=== PATIENT | female | born 1955 | race Hispanic/Latino ===

== ENCOUNTER 2019-01-31 18:35 | Emergency (ER) | payer SELFPAY ==
[2019-01-31 19:09] LABS: APPEARANCE,URINE Cloudy (CLEAR); BILIRUBIN,URINE Negative (NEGATIVE); COLOR,URINE Yellow (YELLOW); GLUCOSE, URINE (UA) Negative (NEGATIVE); KETONES,URINE Negative (NEGATIVE); LEUKOCYTE ESTERASE ,URINE Large (NEGATIVE); NITRATE,URINE Negative (NEGATIVE); OCCULT BLOOD,URINE Small (NEGATIVE); PH,URINE 6.5 (5.0-8.0); PROTEIN,URINE Negative (NEGATIVE); UROBILINOGEN,URINE 0.2 mg/dL (0.2-1.0)
[2019-01-31 19:24] LABS: BASOPHILS % (AUTO) 0.2 % (0.0-5.0); EOSINOPHILS % (AUTO) 1.4 % (0.0-8.0); HEMATOCRIT 40.2 % (36-48); LYMPHOCYTES % (AUTO) 26.3 % (21.0-51.0); MEAN CORPUSCULAR HEMOGLOBIN 33.3 pg (27.0-33.0); MEAN CORPUSCULAR HGB CONC 34.7 g/dL (32.0-36.0); MEAN CORPUSCULAR VOLUME 96.2 fL (79-99); MONOCYTES % (AUTO) 6.4 % (3.0-13.0); NEUTROPHILS % (AUTO) 65.7 % (40.0-77.0); NUCLEATED RED BLOOD CELLS 0.1 % (0.0-0.19); PLATELET COUNT (AUTO) 189 K/uL (130-400); RED BLOOD CELL COUNT(AUTO) 4.18 MIL/uL (4.00-5.50); RED CELL DISTRIBUTION WIDTH 13.1 % (11.0-15.5); WHITE BLOOD COUNT (AUTO) 11.5 K/uL (4.8-10.8)
[2019-01-31 19:27] LABS: BACTERIA,URINE Moderate /HPF (None Seen)
[2019-01-31 19:28] LABS: MUCUS,URINE None Seen LPF (None Seen); SQUAMOUS EPITHELIAL CELL,UR 0-2 /HPF (0-2)
[2019-01-31 19:35] LABS: CREATININE 0.9 mg/dL (0.5-1.5); POTASSIUM 3.7 mmol/L (3.5-5.1)
[2019-01-31 19:39] LABS: ALBUMIN 3.7 g/dL (3.5-5.0); BILIRUBIN,TOTAL 0.4 mg/dL (0.2-1.0); TOTAL PROTEIN, SERUM 7.9 g/dL (6.0-8.3)
[2019-01-31] MEDS ORDERED: KETOROLAC TROMETHAMINE 30MG/ML ONE (19:58)
[2019-01-31] MEDS ORDERED: HYDROMORPHONE 1 MG/1 ML AMP ONE (19:58)
[2019-01-31] MEDS ORDERED: SODIUM CHLORIDE 0.9% 1000ML 1,000 ML IV ONE (19:59)
[2019-01-31] MEDS ORDERED: CEFTRIAXONE SODIUM 1 GM ONE (21:08)
== END 2019-01-31 22:05 | disposition home or self-care (01) ==
LOC: EDH 18:35
DX: N20.1 Calculus of ureter (principal); N39.0 Urinary tract infection, site not specified; Z88.6 Allergy status to analgesic agent; Z90.710 Acquired absence of both cervix and uterus; Z90.49 Acquired absence of other specified parts of digestive tract; Z93.6 Other artificial openings of urinary tract status
CPT/HCPCS: 36415; 74176; 80053; 81001; 83690; 85025; 87077; 87088; 87186; 96374; 96375; 99285; J0696; J1170; J1885; J7030

== ENCOUNTER 2019-02-03 08:28 | Emergency (ER) | payer SELFPAY | END 2019-02-03 13:04 | disposition home or self-care (01) | LOC: EDH 08:28 | DX: T83.092A Other mechanical complication of nephrostomy catheter, initial encounter (principal); Z90.49 Acquired absence of other specified parts of digestive tract; Z90.710 Acquired absence of both cervix and uterus; Z87.442 Personal history of urinary calculi; Z88.5 Allergy status to narcotic agent; Z88.2 Allergy status to sulfonamides | CPT/HCPCS: 74176 ==

== ENCOUNTER 2019-07-21 10:14 | Day surgery (SDC) | payer BC, MEDICARE ==
[2019-07-17 15:37] LABS: BASOPHILS % (AUTO) 0.7 % (0.0-5.0); EOSINOPHILS % (AUTO) 2.9 % (0.0-8.0); HEMATOCRIT 39.9 % (36-48); LYMPHOCYTES % (AUTO) 37.3 % (21.0-51.0); MEAN CORPUSCULAR HEMOGLOBIN 31.2 pg (27.0-33.0); MEAN CORPUSCULAR HGB CONC 33.6 g/dL (32.0-36.0); MEAN CORPUSCULAR VOLUME 92.8 fL (79-99); MONOCYTES % (AUTO) 5.4 % (3.0-13.0); NEUTROPHILS % (AUTO) 53.6 % (40.0-77.0); PLATELET COUNT (AUTO) 246 K/uL (130-400); RED CELL DISTRIBUTION WIDTH 12.8 % (11.0-15.5); WHITE BLOOD COUNT (AUTO) 7.6 K/uL (4.8-10.8)
[2019-07-17 15:47] LABS: CREATININE 0.9 mg/dL (0.5-1.5); POTASSIUM 3.4 mmol/L (3.5-5.1)
[2019-07-17 16:29] VITALS: BP 116/57
--- NOTE | 2019-07-18 12:54 | NUR ---
EKG ABNORMAL EKG REPORTED TO DR. JULES NO FURTHER ORDERS GIVEN, OK TO PROCEED WITH PLANNED SURGERY
[~2019-07-21] VITALS: Ht 149.9 cm; Wt 69.6 kg
[2019-07-21] VITALS (14 sets, daily range): BP systolic 114–137; BP diastolic 52–95
[~2019-07-21 10:14] MED LIST: TAMS-1 PO
[2019-07-21] MEDS ORDERED: LACTATED RINGERS 1000ML 1,000 ML IV ONE (11:48)
[2019-07-21] MEDS ORDERED: ZOSYN 3.375GM+NS 50ML 50 ML IV ONE (11:48)
[2019-07-21] MEDS ORDERED: OXYB-66 PO (12:35)
[2019-07-21] MEDS ORDERED: IOHEXOL-350 50ML VIAL IV ONE (13:43)
[2019-07-21] MEDS ORDERED: FENTANYL CITRATE PF 50 MCG/1 ML 5ML AMP IV ONE (13:55)
[2019-07-21] MEDS ORDERED: PROPOFOL 10 MG/ML 20ML VIAL IV ONE (13:55)
[2019-07-21] MEDS ORDERED: ROCURONIUM 10MG/1ML SYR 10 MG/ML ML ONE (13:55)
[2019-07-21] MEDS ORDERED: LIDOCAINE PF 2% 5ML ABBOJECT ONE (13:55)
[2019-07-21] MEDS ORDERED: MIDAZOLAM HCL 1 MG/ML 2ML VIAL ONE (13:55)
[2019-07-21] MEDS ORDERED: PHENYLEPHRINE HCL 10 MG/ML 1ML VIAL IV ONE (14:13)
[2019-07-21] MEDS ORDERED: ONDANSETRON HCL 4 MG/2 ML VIAL ONE (14:16)
[2019-07-21] MEDS ORDERED: DEXAMETHASONE SOD PHOSPHATE 10MG/ML 1ML VIAL ONE (14:16)
[2019-07-21] MEDS ORDERED: NEOSTIGMINE 5MG/5ML SYR IV ONE (14:17)
[2019-07-21] MEDS ORDERED: GLYCOPYRROLATE 1 MG/5 ML SYRINGE ONE (14:17)
[2019-07-21] MEDS ORDERED: PHENAZOPYRIDINE HCL 200 MG TABLET ONE (16:23)
--- NOTE | 2019-07-21 17:10 | NUR ---
PT STABLE, AAOX3 , DISTRESS, NO C/O PAIN S/P PROCEDURE. DING CATHER REMOVE. PT ABLE TO AMBULATE TO RESTROOM AND VOID WITH EASE. TOLERATED FLUIDS, SITTING UP IN BED DRESSED HERSELF. INSTRUCTIONS AND RX GIVEN TO PT AND SISTER, BOTH VERBALIZED UNDERSTANDING. PT IV D/C. PT TAKEN OUT IN W/C DRIVE HOME BY SISTER.
== END 2019-07-21 17:10 | disposition home or self-care (01) ==
LOC: DAH 10:14
PROVIDERS: ATTEND Urology
DX: N13.2 Hydronephrosis with renal and ureteral calculous obstruction (principal); E03.9 Hypothyroidism, unspecified; I10 Essential (primary) hypertension; Z88.5 Allergy status to narcotic agent; Z79.899 Other long term (current) drug therapy
CPT/HCPCS: 36415 ×2; 52356; 80048; 82360; 85025; 93005; A4215; A4221; A4222; A4223 ×2; A4344; A4354; A4450; A4600; A4663; A6204; A6260; C1758; C1769; C2617; J1100; J2001; J2250; J2370; J2405; J2543; J2704; J2710; J3010; J3490; J7120; 77002; Q9967

== ENCOUNTER 2021-11-20 14:36 | Emergency (ER) | payer OTHER, MEDICARE ==
[~2021-11-20] VITALS: Ht 149.9 cm; Wt 74.8 kg
[~2021-11-20 14:36] MED LIST changes: +OXYB-66 PO
[2021-11-20] MEDS ORDERED: ACETAMINOPHEN 325 MG TAB PO ONE (17:00)
[2021-11-20] MEDS ORDERED: TRAM50TA4 PO (17:09)
[2021-11-20 17:47] VITALS: BP 151/63
== END 2021-11-20 17:48 | disposition home or self-care (01) ==
LOC: EDH 14:36
DX: S82.831A Other fracture of upper and lower end of right fibula, initial encounter for closed fracture (principal); S40.812A Abrasion of left upper arm, initial encounter; E78.00 Pure hypercholesterolemia, unspecified; M19.071 Primary osteoarthritis, right ankle and foot; Z88.5 Allergy status to narcotic agent; Z90.49 Acquired absence of other specified parts of digestive tract; W18.39XA Other fall on same level, initial encounter; Y93.89 Activity, other specified; Y92.89 Other specified places as the place of occurrence of the external cause; Y99.8 Other external cause status
CPT/HCPCS: 29515; 73610; 73630